=== PATIENT | female | born 1940 | race Caucasian/White ===

== ENCOUNTER 2016-11-01 23:50 | Observation (INO) | payer BC ==
--- NOTE | ~2016-11-01 | HP ---
History And Physical [facility] [id number] [place]. [address] NAME: RIMMA CABRERA : 42 STATUS : ADM Inge PAT#: [id number] AGE: 76 ADM/REG DATE : 11/01/16 MR#: [id number] REPORT SERV DATE: 11/02/16 DICTATED BY: SMOOTH PEARCE DATE: 11/02/16 REPORT STATUS : Draft TRANSCRIBED BY: ANNALISE DATE: 11/02/16 DATE OF ADMISSION: 11/01/2016 EARLY CHILDHOOD: Kenneth Espinoza M.D. CHIEF COMPLAINT: Shortness of breath, similar to previous cardiac events; and chest pain. HISTORY OF PRESENT ILLNESS: A very pleasant 76-year-old white female with known history of CAD status post two AVILA to LAD in 12/[address] Espinoza with followup cath in 01/2008 revealing widely patent stents to the LAD. The patient states that on 11/01/2016 around 2100 hours, she experienced chest pain at rest that did not radiate elsewhere. She describes two weeks of discomfort near her left lateral rib cage. She denies any exertional component. She reports some associated shortness of breath and belching. Denies any nausea, diaphoresis, or dizziness. She did try three low-dose aspirin and one gas tablet last night with no improvement in her symptoms. EMS was called. She states her blood pressure was fine per her wrist cuff prior to the EMS coming, but she is unable to report any numbers. EMS documents blood pressure of 200/80. Initially, they were unable to get an IV started, seems no medications were provided en route. She is unable to rate the intensity of her chest pain. She states it lasted several hours in duration. She describes the chest pain as a tightness and the shortness of breath was similar to her previous cardiac event. The patient is uncertain if she had an [facility] prior to her stent placement in 2007. Denies history of stroke, DVT, or pulmonary embolus. The patient denies any recent fever or chills. Reports rare palpitations. Consumes one cup of coffee and one coke per day. No syncopal episodes. Denies PND or orthopnea. PAST MEDICAL HISTORY: 1. CAD. a. Status post two AVILA to mid LAD, 12/2007. b. Cath, 01/2008, widely patent stents to the LAD. 2. Hypertension. 3. Dyslipidemia. 4. Denies diabetes. 5. History of nephrolithiasis. PAST SURGICAL HISTORY: Lumbar surgery and hip surgery. SOCIAL HISTORY: She is with one child. Retired from the [employer]. Does not have a structured exercise routine, although she is active. Denies tobacco, alcohol, or illicits. FAMILY HISTORY: Father with CAD and CABG. of lung cancer at 79. Brother at the age of 70 of an unknown cause. REVIEW OF SYSTEMS: A 14-point review of systems was performed, significant for HPI. No other contributory History And Physical [address] [address] NAME: RIMMA CABRERA : 42 STATUS : ADM Inge PAT#: [id number] AGE: 76 ADM/REG DATE : 11/01/16 MR#: [id number] REPORT SERV DATE: 11/02/16 DICTATED BY: SMOOTH PEARCE DATE: 11/02/16 REPORT STATUS : Draft TRANSCRIBED BY: ANNALISE DATE: 11/02/16 diagnoses identified. ALLERGIES: NO KNOWN DRUG ALLERGIES HOME. HOME MEDICATIONS: Amlodipine 5 mg daily, aspirin 81 mg daily, benazepril 40 mg daily, vitamin D 1000 units daily, Klonopin p.r.n., hydrochlorothiazide 12.5 daily p.r.n. (requires two to three times weekly), multivitamin daily, fish oil 1000 mg daily, Zoloft 50 mg daily, simvastatin 40 mg daily, and Ultram 50 mg twice daily p.r.n. PHYSICAL EXAMINATION: BLOOD PRESSURE: 160/72, PULSE: 63, RESPIRATORY RATE: 15, TEMPERATURE: 97.8, O2 saturation 96% on room air. HEIGHT: 4 feet 11 inches, WEIGHT: 120 pounds. BMI of 24. GENERAL: Cooperative, in no apparent distress. HEENT: Pupils 2 mm, sclera nonicteric. Nares patent. Moist mucous membranes. No xanthelasma. NECK: Trachea midline, no thyromegaly. No JVD. No bruits. LYMPH: No cervical lymphadenopathy. No supraclavicular lymphadenopathy. RESPIRATORY: Unlabored respirations. Breath sounds clear bilaterally to posterior auscultation. No wheezes or rhonchi. CARDIOVASCULAR: Regular rate. No murmur, rub or gallop appreciated. EXTREMITIES: Multiple ecchymotic areas on forearm. ABDOMEN: Soft, nontender, nondistended, normal bowel sounds auscultated throughout. No organomegaly. SKIN: Warm, dry extremities. No pallor, or cyanosis. PSYCHIATRIC: Appropriate affect. Alert, oriented x3. LABORATORY DATA: Troponin is less than 0.02, 0.10, and 0.11. Potassium 3.8, BUN 9, creatinine 0.65, glucose 101, and magnesium 2.2. WBC of 4.6, hemoglobin 13.1, hematocrit 38.2, and platelet count 320,000. EKG, sinus rhythm. MPI, 2011: Kennedy stage 2, 5:45 minutes, 7 METS. Positive EKG changes, but no chest pain. No ischemia on imaging. Cath, 01/2008 ([facility]): Widely patent stents to LAD. ASSESSMENT AND PLAN: 1. Chest pain in a patient with multiple risk factors and known coronary artery disease. The patient thus being held n.p.o. Troponins slightly elevated to 0.10 and 0.11. We will discuss with rounding physician whether to proceed with a stress testing versus cardiac cath. The patient describes her shortness of breath is similar to her previous cardiac event. Also, we will await a D-dimer. Further recommendations forthcoming. 2. Shortness of breath. Similar to previous cardiac event. Check D-dimer. 3. Coronary artery disease. Continue home medications. 4. Hypertension. Monitor blood pressure. Resume home medications. Recommend upper arm cuff for blood pressure machine. Maintain a diary for followup visits. We will resume home medications. 5. Dyslipidemia. Continue statin. History And Physical [address] [id number] NAME: RIMMA CABRERA : 42 STATUS : ADM Inge PAT#: [id number] AGE: 76 ADM/REG DATE : 11/01/16 MR#: [id number] REPORT SERV DATE: 11/02/16 DICTATED BY: SMOOTH PEARCE DATE: 11/02/16 REPORT STATUS : Draft TRANSCRIBED BY: ANNALISE DATE: 11/02/16 6. No nitroglycerin is available. Script will be provided at discharge with education provided at bedside regarding dosing and storage of nitroglycerin. HAILEE/MODL RAHEEL Quiñones, ADRIÁN-BC / [id number] CC: RAHEEL Quiñones, [employer] CHAIR-BC Lydia Blanca M.D.
[~2016-11-01 23:50] MED LIST: APRES25 PO; ASA5GR PO; ASAB PO; CENTRUM PO; FERROUS PO; FISH-EPA1000 MG PO; HCTZ12.5 PO; KLONO5 PO; LORTAB 5 PO; LOTE40 PO; MVI PO; NORCO1 TA2 PO; NORV5 PO; PLAVIX PO; REFRESH OPH; TUMSROLL PO; ZITH250 PO; ZOCOR40 PO; ZOL50 PO
[2016-11-02 00:52] LABS: BASOPHILS 0.9 %; BASOPHILS ABSOLUTE 0.04 10/3/uL (0.0-0.16); EOSINOPHILS 1.3 %; EOSINOPHILS ABSOLUTE 0.06 10/3/uL (0.0-0.53); ER CBC TAT 0 Hrs 09 Mins; IMMATURE GRANULOCYTES 0.2 %; IMMATURE GRANULOCYTES ABSOLUTE 0.01 10/3/uL (0.0-0.11); LYMPHOCYTES 31.7 %; LYMPHOCYTES ABSOLUTE 1.45 10/3/uL (0.67-4.30); MEAN CORPUS HGB CONC 34.3 g/dL (32.0-36.0); MEAN CORPUSCULAR HEMOGLOB 29.7 pg (26.0-34.0); MEAN CORPUSCULAR VOLUME 86.6 fL (80-100); MEAN PLATELET VOLUME 9.4 fL (9.2-13.0); MONOCYTES 8.1 %; MONOCYTES ABSOLUTE 0.37 10/3/uL (0.21-1.20); NEUTROPHILS 57.8 %; NEUTROPHILS ABSOLUTE 2.65 10/3/uL (2.02-8.40); PLATELET COUNT 320 10/3/uL (150-400); RBC DISTRIBUTION WIDTH 14.3 % (12.0-16.0); WHITE BLOOD CELLS 4.6 10/3/uL (4.5-10.5)
[2016-11-02 00:57] LABS: INTERNATIONAL NORMAL RATI 0.9 UNITS (-); PROTIME (NOT ORD) 12.3 SEC (12.0-14.5)
[2016-11-02 00:58] LABS: PARTIAL THROMBO TIME 35.8 SEC (22.5-37.2)
[2016-11-02 01:02] LABS: HEMATOCRIT 38.2 % (36.0-48.0); HEMOGLOBIN 13.1 g/dL (12.0-16.0); MANUAL DIFF NO %; RED CELL COUNT 4.41 10/6/uL (4.0-5.6)
[2016-11-02 01:05] LABS: CALCIUM, SERUM 10.3 MG/DL (8.5-10.4); CHEST PAIN PROFILE TAT 0 Hrs 22 Mins; CHLORIDE, SERUM 107 MMOL/L (96-112); CO2 (CARBON DIOXIDE) 26 MMOL/L (24-34); CREATININE 0.65 MG/DL (0.55-1.02); GFR AFRICAN AMERICAN 101 ML/MIN (>=60); GFR NON AFRICAN AMERICAN 87 ML/MIN (>=60); GLUCOSE, SERUM 101 MG/DL (60-99); POTASSIUM, SERUM 3.8 MMOL/L (3.5-5.3); SODIUM, SERUM 144 MMOL/L (135-148); TROPONIN I <0.02 NG/ML (<0.05)
[2016-11-02 01:10] LABS: BUN (BLOOD UREA NITROGEN) 9 MG/DL (6-23)
[2016-11-02] MEDS ORDERED: KLONO5 PO (01:57)
[2016-11-02] MEDS ORDERED: NORV5 PO (01:58)
[2016-11-02] MEDS ORDERED: ZOCOR40 PO (01:58)
[2016-11-02] MEDS ORDERED: HCTZ12.5 PO (01:58)
[2016-11-02] MEDS ORDERED: ULTRAM50 PO (01:58)
[2016-11-02] MEDS ORDERED: LOTE40 PO (01:59)
[2016-11-02] MEDS ORDERED: ZOL50 PO (01:59)
[2016-11-02] MEDS ORDERED: CENTRUM PO (02:24)
[2016-11-02] MEDS ORDERED: ASAB PO (02:25)
[2016-11-02] MEDS ORDERED: FISH-EPA1000 MG PO (02:25)
[2016-11-02] MEDS ORDERED: VITAMIN D1000 UNI1 PO (02:27)
== END 2016-11-02 15:38 | disposition home or self-care (01) ==
LOC: ER 23:50 → CDU1 23:59 → CDU2 11-02 04:04
PROVIDERS: Specialist
DX: R07.9 Chest pain, unspecified (principal); R06.02 Shortness of breath; I25.10 Atherosclerotic heart disease of native coronary artery without angina pectoris; E78.5 Hyperlipidemia, unspecified; I10 Essential (primary) hypertension; F32.9 Major depressive disorder, single episode, unspecified; F41.9 Anxiety disorder, unspecified; D64.9 Anemia, unspecified; M81.0 Age-related osteoporosis without current pathological fracture; E78.00 Pure hypercholesterolemia, unspecified; Z87.442 Personal history of urinary calculi; Z98.890 Other specified postprocedural states; Z82.49 Family history of ischemic heart disease and other diseases of the circulatory system; Z95.1 Presence of aortocoronary bypass graft; Z80.1 Family history of malignant neoplasm of trachea, bronchus and lung; Z79.82 Long term (current) use of aspirin; Z79.899 Other long term (current) drug therapy; Z98.1 Arthrodesis status; Z90.49 Acquired absence of other specified parts of digestive tract
CPT/HCPCS: 71010; 71275; 78452; 80048; 83735; 84484; 85025; 85379; 85610; 85730; 93005; 93017; 99285; A9270-GY; A9502; G0378; Q9967